=== PATIENT | female | born 1970 | race Caucasian/White ===

== ENCOUNTER 2024-10-16 08:28 | Outpatient (RCR) | payer OTHER, SELFPAY ==
[2024-10-16 09:03] VITALS: BP 143/86; PULSE 84
== END 2024-10-16 09:50 | disposition home or self-care (01) ==
LOC: HO.PT 08:28
PROVIDERS: PCP Internal Medicine; Visit Provider Otolaryngology
DX: H81.10 Benign paroxysmal vertigo, unspecified ear (principal)
CPT/HCPCS: 97161